=== PATIENT | male | born 1980 | race Two or more races ===

== ENCOUNTER 2022-04-20 12:47 | Emergency (ER) | payer OTHER ==
[~2022-04-20] VITALS: Ht 177.8 cm; Wt 99.8 kg
[2022-04-20] MEDS ORDERED: SODIUM CHLORIDE 0.9% 1,000 ML IV ONE (18:45)
[2022-04-20] MEDS ORDERED: TETANUS-DIPTH-ACEL PERTUSSIS 0.5ML SYR Tdap IM ONE (18:45)
[2022-04-20] MEDS ORDERED: ceFAZolin 1GM/50ML 100 ML IV ONE (18:45)
[2022-04-20 19:06] VITALS: BP 140/86
== END 2022-04-20 19:31 | disposition short-term general hospital (02) ==
LOC: ER 12:47 → EEVIPCON 12:47 → ER 19:31
DX: S02.2XXA Fracture of nasal bones, initial encounter for closed fracture (principal); W01.0XXA Fall on same level from slipping, tripping and stumbling without subsequent striking against object, initial encounter; Y93.89 Activity, other specified; Y92.89 Other specified places as the place of occurrence of the external cause; Y99.8 Other external cause status
CPT/HCPCS: 70450; 70486; 90715